=== PATIENT | male | born 1995 | race Caucasian/White ===

== ENCOUNTER 2016-06-24 13:55 | Emergency (ER) | payer BC ==
[2016-06-24 15:36] VITALS: BP 124/71
--- NOTE | 2016-06-24 15:42 | UC ---
Ear Complaint HPI - HPI Summary HPI Summary: pt presents with c/o right ear tenderness, swelling and loss of hearing over the last 3 dasy. Pt reports that he puta "dirty" Qtip in his ear and shortly after the outer ear canal began to be tender and swell. - History of Current Complaint Chief Complaint: UCEar Stated Complaint: SWOLLEN RIGHT EAR Time Seen by Provider: 06/24/16 15:28 Hx Obtained From: Patient Onset/Duration: Gradual Onset, Lasting Days Severity Initially: Mild Severity Currently: Moderate Associated Signs/Symptoms: Positive: Discharge, Hearing Loss, Swelling @ - Allergies/Home Medications Allergies/Adverse Reactions: Allergies Allergy/AdvReac Type Severity Reaction Status Date / Time Amoxicillin Allergy Hives Verified 06/24/16 15:28 Azithromycin [From Zithromax] Allergy Hives Verified 06/24/16 15:28 Cefaclor [From Ceclor] Allergy Hives Verified 06/24/16 15:28 Clavulanic Acid Allergy Hives Verified 06/24/16 15:28 [From Augmentin] Sulfa Antibiotics Allergy Hives Verified 06/24/16 15:28 Home Medications: Home Medications FLUoxetine CAP* [Prozac CAP*] 10 mg PO DAILY 06/24/16 [History Confirmed ] Methylphenidate HCl [Concerta] 2 tab PO DAILY 06/24/16 [History Confirmed ] PMH/Surg Hx/FS Hx/Imm Hx Previously Healthy: Yes Respiratory History Of: Reports: Asthma - as child - Surgical History Surgical History: Yes Surgery Procedure, Year, and Place: Bilat ear tubes - Family History Known Family History: Positive: Cardiac Disease - Social History Occupation: Student - at [employer] Lives: With Family Alcohol Use: None Substance Use Type: None Smoking Status (MU): Never Smoked Tobacco - Immunization History Most Recent Influenza Vaccination: NONE Most Recent Tetanus Shot: UTD Most Recent Pneumonia Vaccination: N/A Vaccination Up to Date: Yes Review of Systems Constitutional: Negative Skin: Other - swelling and tenderenss right outer ear canal Eyes: Negative ENT: Ear Ache, Other - hearing loss Respiratory: Negative Cardiovascular: Negative Gastrointestinal: Negative Genitourinary: Negative Motor: Negative Neurovascular: Negative Musculoskeletal: Negative Neurological: Negative Psychological: Negative All Other Systems Reviewed And Are Negative: Yes Physical Exam Triage Information Reviewed: Yes Appearance: Well-Appearing Vital Signs: Initial Vital Signs Temp 99.6 F 06/24/16 15:30 Pulse 96 06/24/16 15:30 Resp 16 06/24/16 15:30 BP 124/71 06/24/16 15:30 Pulse Ox 100 06/24/16 15:30 Eye Exam: Normal ENT Exam: Other ENT: Positive: Other: - right outer ear canal swollen, mild erythematous, and unable to visualize TM Neck exam: Normal Respiratory Exam: Normal Cardiovascular Exam: Normal Musculoskeletal Exam: Normal Neurological Exam: Normal Psychological Exam: Normal Skin Exam: Other - mild erythema right outer ear canal Ear Complaint Course/Dx - Differential Dx/Diagnosis Differential Diagnosis/HQI/PQRI: Cerumen Impaction, Otitis Externa Provider Diagnoses: right ear otitis externa Discharge - Discharge Plan Condition: Stable Disposition: HOME Prescriptions: Hydrocortisone W/Acetic Acid [Hydrocortisone/Acetic Aci 1-2 %] 3 drop RIGHT EAR Q8H #1 bottle Patient Education Materials: Otitis Externa (ED) Referrals: Salvador Hui MD [Primary Care Provider] - If Needed Additional Instructions: Please follow up with your PCP or return to clinic as needed.
== END 2016-06-24 15:51 | disposition home or self-care (01) ==
LOC: UCCORT 13:55
DX: H60.91 Unspecified otitis externa, right ear (principal)
CPT/HCPCS: 99212; G0463